=== PATIENT | female | born 1940 | race Caucasian/White ===

== ENCOUNTER 2021-07-15 12:19 | Observation (INO) | payer MEDICARE ==
--- NOTE | 2021-07-15 12:47 | ED ---
General Adult HPI - General Stated complaint: Syncope Time Seen by Provider: 07/15/21 12:20 Source: patient, RN notes reviewed, old records reviewed - History of Present Illness Initial comments: This is an 81-year-old female who presents to the emergency department stating she has a past medical history of Parkinson's disease and has a deep brain stimulator in place. Patient states she was going down to see her neurologist a nd that she was driving she became lightheaded thought she would pass out so she pulled over at a friend's house and laid down and called EMS. Patient states the symptoms lasted for about half an hour and it was definitely the sensation that she was going to pass out and did not dizziness or vertiginous in nature. Patient states she has a very mild headache. Patient denies numbness weakness. Patient states the lightheadedness is pass at this time. Patient states at no time did she have any chest pain or difficulty breathing or felt any palpitations. Patient states she has no history recently of fever chills or cough. Patient states she's had both vaccinations for COVID and the booster. - Related Data Home Medications Medication Instructions Recorded Confirmed Aspirin EC [Ecotrin Low Dose] 81 mg PO HS 07/15/21 07/15/21 Atorvastatin [Lipitor] 80 mg PO DAILY 07/15/21 07/15/21 Carbidopa-Levodopa 25-100 mg 1 tab PO 5XD 07/15/21 07/15/21 [Sinemet 25-100] Cholecalciferol [Vitamin D3 (25 25 mcg PO DAILY 07/15/21 07/15/21 Mcg = 1000 Iu)] Glucosam/Chond/Hyalu/Cf Borate 1 tab PO DAILY 07/15/21 07/15/21 [Move Free [employer] Tablet] Melatonin 2 mg PO HS PRN 07/15/21 07/15/21 Omeprazole 20 mg PO BID 07/15/21 07/15/21 hydroCHLOROthiazide [Hydrodiuril] 12.5 mg PO DAILY 07/15/21 07/15/21 Allergies Allergy/AdvReac Type Severity Reaction Status Date / Time No Known Allergies Allergy Verified 07/15/21 14:18 Review of Systems ROS Statement: Those systems with pertinent positive or pertinent negative responses have been documented in the HPI. ROS Other: All systems not noted in ROS Statement are negative. General Exam - General Exam Comments Initial Comments: GENERAL: Patient is well-developed and well-nourished. Patient is nontoxic and well-hyd rated and is in no acute distress. ENT: Neck is soft and supple. No significant lymphadenopathy is noted. Oropharynx is clear. Moist mucous membranes. Neck has full range of motion without elicit ing any pain. EYES: The sclera were anicteric and conjunctiva were pink and moist. Extraocular m ovements were intact and pupils were equal round and reactive to light. Eyelids were unremarkable. PULMONARY: Mild Unlabored respirations. Good breath sounds bilaterally. No audible rales rhonchi or wheezing was noted. CARDIOVASCULAR: There is a regular rate and rhythm without any murmurs gallops or rubs. ABDOMEN: Soft and nontender with normal bowel sounds. SKIN: Skin is clear with no lesions or rashes and otherwise unremarkable. NEUROLOGIC: Patient is alert and oriented x3. Cranial nerves II through XII are grossly intact. Motor and sensory are also intact. Normal speech, volume and content. Symmetrical smile. MUSCULOSKELETAL: Normal extremities with adequate strength and full range of motion. LYMPHATICS: No significant lymphadenopathy is noted PSYCHIATRIC: Normal psychiatric evaluation. Course Vital Signs 07/15/21 12:57 Temperature 97.8 F Pulse Rate 77 Respiratory 20 Rate Blood Pressure 139/86 O2 Sat by Pulse 96 Oximetry Medical Decision Making - Medical Decision Making EKG shows normal sinus rhythm at 63 bpm LA interval is 120 QRS is 86 Q-T intervals 434 QTC is 444. Patient's EKG shows no ST segment elevation or depression. Chest x-ray shows no acute abnormality. Patient was at her baseline when I reevaluated her but because of her near syncopal episode and the fact that her said she was unable to respond to him for about 10 minutes even though she could hear I determined it was in the best interest of the patient to keep her in the hospital. - Lab Data Result diagrams: 07/15/21 13:12 07/15/21 13:12 Lab Results 07/15/21 07/15/21 07/15/21 Range/Units 13:12 13:12 13:12 WBC 6.0 (3.8-10.6) k/uL RBC 4.62 (3.80-5.40) m/uL Hgb 15.4 (11.4-16.0) gm/dL Hct 44.9 (34.0-46.0) % MCV 97.2 (80.0-100.0) fL MCH 33.4 (25.0-35.0) pg MCHC 34.3 (31.0-37.0) g/dL RDW 12.3 (11.5-15.5) % Plt Count 221 (150-450) k/uL MPV 7.6 Neutrophils % 79 % Lymphocytes % 14 % Monocytes % 5 % Eosinophils % 1 % Basophils % 1 % Neutrophils # 4.7 (1.3-7.7) k/uL Lymphocytes # 0.8 L (1.0-4.8) k/uL Monocytes # 0.3 (0-1.0) k/uL Eosinophils # 0.1 (0-0.7) k/uL Basophils # 0.0 (0-0.2) k/uL PT 13.3 H (9.0-12.0) sec INR 1.3 H (<1.2) APTT 26.1 (22.0-30.0) sec Sodium 135 L (137-145) mmol/L Potassium 4.2 (3.5-5.1) mmol/L Chloride 101 (98-107) mmol/L Carbon Dioxide 26 (22-30) mmol/L Anion Gap 8 mmol/L BUN 21 H (7-17) mg/dL Creatinine 0.60 (0.52-1.04) mg/dL Est GFR (CKD-EPI)AfAm >90 (>60 ml/min/1.73 sqM) Est GFR (CKD-EPI)NonAf 87 (>60 ml/min/1.73 sqM) Glucose 101 H (74-99) mg/dL Calcium 9.6 (8.4-10.2) mg/dL Magnesium 2.2 (1.6-2.3) mg/dL Total Bilirubin 1.1 (0.2-1.3) mg/dL AST 39 H (14-36) U/L ALT 8 (4-34) U/L Alkaline Phosphatase 63 (38-126) U/L Troponin I (0.000-0.034) ng/mL Total Protein 6.7 (6.3-8.2) g/dL Albumin 4.2 (3.5-5.0) g/dL 12/01/21 Range/Units 13:12 WBC (3.8-10.6) k/uL RBC (3.80-5.40) m/uL Hgb (11.4-16.0) gm/dL Hct (34.0-46.0) % MCV (80.0-100.0) fL MCH (25.0-35.0) pg MCHC (31.0-37.0) g/dL RDW (11.5-15.5) % Plt Count (150-450) k/uL MPV Neutrophils % % Lymphocytes % % Monocytes % % Eosinophils % % Basophils % % Neutrophils # (1.3-7.7) k/uL Lymphocytes # (1.0-4.8) k/uL Monocytes # (0-1.0) k/uL Eosinophils # (0-0.7) k/uL Basophils # (0-0.2) k/uL PT (9.0-12.0) sec INR (<1.2) APTT (22.0-30.0) sec Sodium (137-145) mmol/L Potassium (3.5-5.1) mmol/L Chloride (98-107) mmol/L Carbon Dioxide (22-30) mmol/L Anion Gap mmol/L BUN (7-17) mg/dL Creatinine (0.52-1.04) mg/dL Est GFR (CKD-EPI)AfAm (>60 ml/min/1.73 sqM) Est GFR (CKD-EPI)NonAf (>60 ml/min/1.73 sqM) Glucose (74-99) mg/dL Calcium (8.4-10.2) mg/dL Magnesium (1.6-2.3) mg/dL Total Bilirubin (0.2-1.3) mg/dL AST (14-36) U/L ALT (4-34) U/L Alkaline Phosphatase (38-126) U/L Troponin I <0.012 (0.000-0.034) ng/mL Total Protein (6.3-8.2) g/dL Albumin (3.5-5.0) g/dL Disposition Clinical Impression: Near syncope Disposition: ADMITTED IP TO THIS HOSP Referrals: Rick Hurst MD [Primary Care Provider] - 1-2 days Time of Disposition: 14:32
[2021-07-15 13:29] LABS: Basophils % (A) 1 %; Eosinophils # (A) 0.1 k/uL (0-0.7); Eosinophils % (A) 1 %; HCT 44.9 % (34.0-46.0); HGB 15.4 gm/dL (11.4-16.0); Lymphocytes # (A) 0.8 k/uL (1.0-4.8); Lymphocytes % (A) 14 %; MCH 33.4 pg (25.0-35.0); MCHC 34.3 g/dL (31.0-37.0); MCV 97.2 fL (80.0-100.0); Mean Platelet Volume 7.6; Monocytes # (A) 0.3 k/uL (0-1.0); Monocytes % (A) 5 %; Neutrophils # (A) 4.7 k/uL (1.3-7.7); Neutrophils % (A) 79 %; Platelet Count 221 k/uL (150-450); RBC 4.62 m/uL (3.80-5.40); RDW 12.3 % (11.5-15.5)
--- NOTE | 2021-07-15 13:39 | XR ---
EXAMINATION TYPE: XR chest 2V DATE OF EXAM: 07/15/2021 COMPARISON: NONE HISTORY: Shortness of breath TECHNIQUE: Frontal and lateral views of the chest are obtained. FINDINGS: Scattered senescent parenchymal changes noted. Hyperinflation compatible with COPD. No evidence for infiltrate. No evidence for atelectasis. Heart size is stable. Mediastinal structures are stable and grossly unremarkable. No evidence for hilar prominence. Degenerative changes dorsal spine. IMPRESSION: 1. No evidence for acute pulmonary disease.
[2021-07-15 13:40] LABS: INR 1.3 (<1.2); Partial Thromboplastin Time 26.1 sec (22.0-30.0); Prothrombin Time 13.3 sec (9.0-12.0)
[2021-07-15 13:44] LABS: ALT 8 U/L (4-34); AST 39 U/L (14-36); African American GFR (CKD) >90 (>60 ml/min/1.73 sqM); Albumin 4.2 g/dL (3.5-5.0); Alkaline Phosphatase 63 U/L (38-126); Anion Gap 8 mmol/L; Blood Urea Nitrogen 21 mg/dL (7-17); Calcium 9.6 mg/dL (8.4-10.2); Carbon Dioxide 26 mmol/L (22-30); Chloride 101 mmol/L (98-107); Glucose 101 mg/dL (74-99); Magnesium 2.2 mg/dL (1.6-2.3); Non-African American GFR(CKD) 87 (>60 ml/min/1.73 sqM); Potassium 4.2 mmol/L (3.5-5.1); Sodium 135 mmol/L (137-145); Total Bilirubin 1.1 mg/dL (0.2-1.3); Total Protein 6.7 g/dL (6.3-8.2)
[2021-07-15] MEDS ORDERED: SODIUM CHLORIDE 0.9% 1,000 ML IV ONE (14:32)
[2021-07-15] MEDS ORDERED: MELATONIN 1 MG TAB PO PRN (16:11)
[2021-07-15] MEDS: amLODIPine 5 MG TAB PO SCH (18:16)
[2021-07-15] MEDS: CARBIDOPA-LEVODOPA 25-100 MG 1 EACH TAB PO SCH (20:44)
[2021-07-15] MEDS ORDERED: ASPIRIN 81 MG PO SCH (21:00)
[2021-07-16] MEDS: CARBIDOPA-LEVODOPA 25-100 MG 1 EACH TAB PO SCH ×3 (00:44→10:48)
[2021-07-16] MEDS ORDERED: PANTOPRAZOLE 40 MG TABLET PO SCH (07:30)
[2021-07-16] MEDS: amLODIPine 5 MG TAB PO SCH (08:26)
[2021-07-16] MEDS ORDERED: ATORVASTATIN 80 MG TAB PO SCH (09:00)
[2021-07-16] MEDS ORDERED: CHOLECALCIFEROL 25 MCG (1000 IU) TABLET PO SCH (09:00)
--- NOTE | 2021-07-16 13:26 | P.HPIM ---
History of Present Illness Patient is a pleasant 81-year-old female came in with complaints of lightheadedness and a sensation of hot flashes and about to pass out. Didn't actually lose consciousness. Patient was admitted for monitoring. Patient had EKG did not show any acute ST-T wave changes no significant abnormality is on the EKG getting Her syncope patient is sinus rhythm with patient does have history of Parkinson's has a deep brain stimulator patient believes her mom function is this stem later may have caused her symptoms. Patient did not have any significant abnormalities on bus driver/monitor. Patient denied any chest pain. Patient wanted to go home. I will order an outpatient echocardiogram and follow with primary care physician as an outpatient patient the blood pressure is bit elevated orthostatics are negative. Lites are within normal limits. REVIEW OF SYSTEMS: CONSTITUTIONAL: No fever, no malaise, no fatigue. HEENT: No recent visual problems or hearing problems. Denied any sore throat. CARDIOVASCULAR: No chest pain, orthopnea, PND, no palpitations, no syncope. PULMONARY: No shortness of breath, no cough, no hemoptysis. GASTROINTESTINAL: No diarrhea, no nausea, no vomiting, no abdominal pain. NEUROLOGICAL: No headaches, no weakness, no numbness. HEMATOLOGICAL: Denies any bleeding or petechiae. GENITOURINARY: Denies any burning micturition, frequency, or urgency. MUSCULOSKELETAL/RHEUMATOLOGICAL: Denies any joint pain, swelling, or any muscle pain. ENDOCRINE: Denies any polyuria or polydipsia. The rest of the 14-point review of systems is negative. PHYSICAL EXAMINATION: GENERAL: The patient is alert and oriented x3, not in any acute distress. Well developed, well nourished. HEENT: Pupils are round and equally reacting to light. EOMI. No scleral icterus. No conjunctival pallor. Normocephalic, atraumatic. No pharyngeal erythema. No thyromegaly. CARDIOVASCULAR: S1 and S2 present. No murmurs, rubs, or gallops. PULMONARY: Chest is clear to auscultation, no wheezing or crackles. ABDOMEN: Soft, nontender, nondistended, normoactive bowel sounds. No palpable organomegaly. MUSCULOSKELETAL: No joint swelling or deformity. EXTREMITIES: No cyanosis, clubbing, or pedal edema. NEUROLOGICAL: Gross neurological examination did not reveal any focal deficits. SKIN: No rashes. Assessment and plan -Dizziness and near syncope: Etiology is not clear but patient was monitored overnight echo will be obtain as an outpatient patient doesn't have any significant murmurs. Patient wanted to go home because of which I'll order an outpatient echo and will be discharged today -History of Parkinson's for which patient is on carbidopa and levodopa along with the brain stem later as mentioned above patient will follow-up with the neurologist outpatient and-hypertension patient will be resumed on home medications -Gastro esophageal reflux disease Past Medical History Past Medical History: Hypertension Additional Past Medical History / Comment(s): parkinsons History of Any Multi-Drug Resistant Organisms: None Reported Past Surgical History: Back Surgery, Hysterectomy Additional Past Surgical History / Comment(s): deep brain stimulator for parkinsons Past Psychological History: No Psychological Hx Reported Smoking Status: Never smoker Past Alcohol Use History: None Reported Past Drug Use History: None Reported Medications and Allergies Home Medications Medication Instructions Recorded Confirmed Type Aspirin EC [Ecotrin Low Dose] 81 mg PO HS 07/15/21 07/15/21 History Atorvastatin [Lipitor] 80 mg PO DAILY 07/15/21 07/15/21 History Carbidopa-Levodopa 25-100 mg 1 tab PO 5XD 07/15/21 07/15/21 History [Sinemet 25-100] Cholecalciferol [Vitamin D3 (25 25 mcg PO DAILY 07/15/21 07/15/21 History Mcg = 1000 Iu)] Glucosam/Chond/Hyalu/Cf Borate 1 tab PO DAILY 07/15/21 07/15/21 History [Move Free [employer] Health Tablet] Melatonin 2 mg PO HS PRN 07/15/21 07/15/21 History Omeprazole 20 mg PO BID 07/15/21 07/15/21 History hydroCHLOROthiazide [Hydrodiuril] 12.5 mg PO DAILY 07/15/21 07/15/21 History Allergies Allergy/AdvReac Type Severity Reaction Status Date / Time No Known Allergies Allergy Verified 07/15/21 14:18 Physical Exam Vitals: Vital Signs Temp Pulse Pulse Pulse Pulse Pulse Resp 07/16/21 08:00 18 07/16/21 07:00 98 F 80 18 07/16/21 01:11 97.9 F 83 16 07/15/21 19:37 98.1 F 89 16 07/15/21 17:38 88 99 85 07/15/21 17:37 97.7 F 85 20 07/15/21 16:14 98.1 F 83 20 07/15/21 14:59 80 20 BP BP BP BP BP Pulse Ox 07/16/21 08:00 07/16/21 07:00 147/77 94 L 07/16/21 01:11 153/81 97 07/15/21 19:37 159/90 96 07/15/21 17:38 206/120 189/105 175/112 07/15/21 17:37 189/105 97 07/15/21 16:14 165/96 96 07/15/21 14:59 152/93 97 Intake and Output 07/15/21 07/16/21 07/16/21 22:59 06:59 14:59 Intake Total 250 500 Balance 250 500 Intake: Oral 250 500 Other: Voiding Method Toilet Toilet # Voids 2 3 Weight 49.895 kg Results CBC & Chem 7: 07/15/21 13:12 07/15/21 13:12 Labs: Abnormal Lab Results - Last 24 Hours (Table) 07/15/21 07/15/21 07/15/21 Range/Units 13:12 13:12 13:12 Lymphocytes # 0.8 L (1.0-4.8) k/uL PT 13.3 H (9.0-12.0) sec INR 1.3 H (<1.2) Sodium 135 L (137-145) mmol/L BUN 21 H (7-17) mg/dL Glucose 101 H (74-99) mg/dL AST 39 H (14-36) U/L
--- NOTE | 2021-07-16 13:26 | P.DS ---
Providers Date of admission: 07/15/21 15:44 Attending physician: Guido Hawkins Primary care physician: Rick Hurst [facility] Course: Refer to my history of present illness for further details Plan - Discharge Summary Discharge Rx Participant: Yes New Discharge Prescriptions: No Action Melatonin 2 mg PO HS PRN PRN Reason: Insomnia Atorvastatin [Lipitor] 80 mg PO DAILY hydroCHLOROthiazide [Hydrodiuril] 12.5 mg PO DAILY Glucosam/Chond/Hyalu/Cf Borate [Move Free [employer] Tablet] 1 tab PO DAILY Cholecalciferol [Vitamin D3 (25 Mcg = 1000 Iu)] 25 mcg PO DAILY Carbidopa-Levodopa 25-100 mg [Sinemet 25-100] 1 tab PO 5XD Aspirin EC [Ecotrin Low Dose] 81 mg PO HS Omeprazole 20 mg PO BID Discharge Medication List Aspirin EC [Ecotrin Low Dose] 81 mg PO HS 07/15/21 [History] Atorvastatin [Lipitor] 80 mg PO DAILY 07/15/21 [History] Carbidopa-Levodopa 25-100 mg [Sinemet 25-100] 1 tab PO 5XD 07/15/21 [History] Cholecalciferol [Vitamin D3 (25 Mcg = 1000 Iu)] 25 mcg PO DAILY 07/15/21 [History] Glucosam/Chond/Hyalu/Cf Borate [Move Free [employer] Health Tablet] 1 tab PO DAILY 07/15/21 [History] Melatonin 2 mg PO HS PRN 07/15/21 [History] Omeprazole 20 mg PO BID 07/15/21 [History] hydroCHLOROthiazide [Hydrodiuril] 12.5 mg PO DAILY 07/15/21 [History] Follow up Appointment(s)/Referral(s): Rick Hurst MD [Primary Care Provider] - 1-2 days
[2021-07-16 14:37] VITALS: BP 111/76; PULSE 91; RESP 20; TEMP 98.5
== END 2021-07-16 14:35 | disposition left against medical advice (07) ==
LOC: EC 12:19 → 6NMEDSUR 15:44
PROVIDERS: ADMIT Internal Medicine; ATTEND Internal Medicine
DX: R55 Syncope and collapse (principal); G20 Parkinson's disease; F02.80 Dementia in other diseases classified elsewhere, unspecified severity, without behavioral disturbance, psychotic disturbance, mood disturbance, and anxiety; I10 Essential (primary) hypertension; K21.9 Gastro-esophageal reflux disease without esophagitis; Z20.822 Contact with and (suspected) exposure to COVID-19; Z79.899 Other long term (current) drug therapy; Z90.710 Acquired absence of both cervix and uterus; Z98.890 Other specified postprocedural states; Z96.82 Presence of neurostimulator
CPT/HCPCS: 99285; 36415; 93005; 80053; 83735; 84484; 85025; 85610; 85730; 87635; 71046; G0378 ×2

== ENCOUNTER 2022-12-02 14:10 | Observation (INO) | payer MEDICARE ==
[2022-12-02] MEDS ORDERED: SODIUM CHLORIDE 0.9% 500 ML 500 ML IV STA (14:52)
[2022-12-02 15:18] LABS: Basophils % (A) 0 %; Eosinophils # (A) 0.1 k/uL (0-0.7); Eosinophils % (A) 2 %; HCT 40.7 % (34.0-46.0); HGB 13.9 gm/dL (11.4-16.0); Lymphocytes # (A) 0.9 k/uL (1.0-4.8); Lymphocytes % (A) 14 %; MCH 34.1 pg (25.0-35.0); MCV 100.3 fL (80.0-100.0); Mean Platelet Volume 7.2; Monocytes # (A) 0.4 k/uL (0-1.0); Monocytes % (A) 6 %; Neutrophils # (A) 4.8 k/uL (1.3-7.7); Neutrophils % (A) 76 %; Platelet Count 243 k/uL (150-450); RBC 4.06 m/uL (3.80-5.40); RDW 12.8 % (11.5-15.5); WBC 6.3 k/uL (3.8-10.6)
--- NOTE | 2022-12-02 15:41 | XR ---
EXAMINATION TYPE: XR chest 2V DATE OF EXAM: 12/02/2022 COMPARISON: 07/15/2021 HISTORY: Altered mental status TECHNIQUE: Frontal and lateral views of the chest are obtained. FINDINGS: There are bilateral nerve stimulator device is present. The heart size is normal. The cardiomediastin al silhouette and pulmonary vasculature are within normal limits. There are a few linear opacities se en at the left lateral costo phrenic angle, which is most compatible with minimal subsegmental atelec tasis. There is no focal consolidation, significant pleural effusion, or pneumothorax. There are mult ilevel degenerative changes of the thoracic spine. IMPRESSION: No acute cardiopulmonary process.
[2022-12-02 15:43] LABS: Partial Thromboplastin Time 22.8 sec (22.0-30.0); Prothrombin Time 10.4 sec (9.0-12.0)
--- NOTE | 2022-12-02 15:49 | CT ---
EXAMINATION TYPE: CT brain wo con CT DLP: 1294.6 mGycm, Automated exposure control for dose reduction was used. DATE OF EXAM: 12/02/2022 3:35 PM COMPARISON: None. CLINICAL INDICATION:Female, 82 years old with history of Neuro deficit, acute, stroke suspected, Neur o deficit, acute, stroke suspected TECHNIQUE: Brain: Axial CT images of the brain were obtained with coronal and sagittal reformats created and rev iewed. Contrast used: None. Oral contrast used: None. FINDINGS: Brain: Extra-axial spaces: No abnormal extra-axial fluid collections. Ventricular system: The ventricles are nondilated. Cerebral parenchyma: Stimulator devices terminate within the thalami bilaterally. No acute intraparen chymal hemorrhage or mass effect. The pereira-white junction is well differentiated. Cerebellum: Unremarkable. Mass effect: No evidence of midline shift. Intracranial vasculature: unremarkable Soft tissues: Normal. Calvarium/osseous structures: No depressed skull fracture. Paranasal sinuses and mastoid air cells: Mild scattered paranasal sinus disease. Visualized orbits: Bilateral aphakia. IMPRESSION: 1. No acute intracranial process. 2. Bilateral stimulator leads terminating in the thalami.
[2022-12-02 15:53] LABS: Albumin 4.1 g/dL (3.5-5.0); Calcium 9.2 mg/dL (8.4-10.2); Potassium 4.4 mmol/L (3.5-5.1); Total Bilirubin 0.7 mg/dL (0.2-1.3); Total Protein 6.7 g/dL (6.3-8.2)
[2022-12-02] MEDS ORDERED: ASPIRIN 325 MG TAB PO STA (16:09)
--- NOTE | 2022-12-02 16:10 | ED ---
General Adult HPI - General Chief complaint: Syncope Stated complaint: Stroke Symptoms Time Seen by Provider: 12/02/22 14:20 Source: patient, RN notes reviewed, old records reviewed Mode of arrival: EMS Limitations: no limitations - History of Present Illness Initial comments: This is an 82-year-old female presents emergency department stating that she was sitting on a barstool at home and passed out according to bystanders she was out for 2-3 minutes. When she became alert she had facial droop and right-sided paralysis of the arm. It lasted about 5 minutes and all symptoms resolved. Patient currently has no symptoms whatsoever. Patient states she has Parkinson disease and she has to stimulators and there will wonderfully. Patient denies any headache patient denies any emesis weakness currently. Patient is chest pain palpitations difficulty breathing shortness of breath. Patient denies any recent fever chills or cough per patient has any abdominal pain patient denies nausea vomiting diarrhea - Related Data Home Medications Medication Instructions Recorded Confirmed Aspirin EC [Ecotrin Low Dose] 81 mg PO HS 07/15/21 07/15/21 Atorvastatin [Lipitor] 80 mg PO DAILY 07/15/21 07/15/21 Carbidopa-Levodopa 25-100 mg 1 tab PO 5XD 07/15/21 07/15/21 [Sinemet 25-100] Cholecalciferol [Vitamin D3 (25 25 mcg PO DAILY 07/15/21 07/15/21 Mcg = 1000 Iu)] Glucosam/Chond/Hyalu/Cf Borate 1 tab PO DAILY 07/15/21 07/15/21 [[employer] Tablet] Melatonin 2 mg PO HS PRN 07/15/21 07/15/21 Omeprazole 20 mg PO BID 07/15/21 07/15/21 hydroCHLOROthiazide [Hydrodiuril] 12.5 mg PO DAILY 07/15/21 07/15/21 Allergies Allergy/AdvReac Type Severity Reaction Status Date / Time No Known Allergies Allergy Verified 12/02/22 15:52 Review of Systems ROS Statement: Those systems with pertinent positive or pertinent negative responses have been documented in the HPI. ROS Other: All systems not noted in ROS Statement are negative. Past Medical History Past Medical History: CVA/TIA, Hypertension Additional Past Medical History / Comment(s): parkinsons History of Any Multi-Drug Resistant Organisms: None Reported Past Surgical History: Back Surgery, Hysterectomy Additional Past Surgical History / Comment(s): deep brain stimulator for parkinsons Past Psychological History: No Psychological Hx Reported Smoking Status: Never smoker Past Alcohol Use History: None Reported Past Drug Use History: None Reported General Exam - General Exam Comments Initial Comments: GENERAL: Patient is well-developed and well-nourished. Patient is nontoxic and well- hydrated and is in no acute distress. ENT: Neck is soft and supple. No significant lymphadenopathy is noted. Oropharynx is clear. Moist mucous membranes. Neck has full range of motion without eliciting any pain. EYES: The sclera were anicteric and conjunctiva were pink and moist. Extraocular movements were intact and pupils were equal round and reactive to light. Eyelids were unremarkable. PULMONARY: Unlabored respirations. Good breath sounds bilaterally. No audible rales rhonchi or wheezing was noted. CARDIOVASCULAR: There is a regular rate and rhythm without any murmurs gallops or rubs. ABDOMEN: Soft and nontender with normal bowel sounds. SKIN: Skin is clear with no lesions or rashes and otherwise unremarkable. NEUROLOGIC: Patient is alert and oriented x3. Cranial nerves II through XII are grossly intact. Motor and sensory are also intact. Normal speech, volume and content. Symmetrical smile. Patient's NIH is 0 MUSCULOSKELETAL: Normal extremities with adequate strength and full range of motion. No lower extremity swelling or edema. No calf tenderness. LYMPHATICS: No significant lymphadenopathy is noted PSYCHIATRIC: Normal psychiatric evaluation. Limitations: no limitations Course Vital Signs 12/02/22 12/02/22 14:18 14:20 Temperature 98 F Pulse Rate 82 68 Respiratory 16 16 Rate Blood Pressure 140/85 140/85 O2 Sat by Pulse 100 99 Oximetry Medical Decision Making - Medical Decision Making EKG shows sinus rhythm at 66 bpm GA interval 268 QRSs 102 QT interval 33 QTC is 397. Patient's EKG shows no ST segment elevation or depression. Was pt. sent in by a medical professional or institution (, PA, REVERSE UNIT OPERATOR FISHERMAN, urgent care, hospital, or snf...) When possible be specific @ -No Did you speak to anyone other than the patient for history (EMS, parent, family, police, friend...)? What history was obtained from this source @ -EMS relayed the history from bystanders found the patient was unconscious Did you review nursing and triage notes (agree or disagree)? Why? @ -I reviewed and agree with nursing and triage notes Were old charts reviewed (outside hosp., previous admission, EMS record, old EKG, old radiological studies, urgent care reports/EKG's, snf records)? Report findings @ -Reviewed prior lab work and charts on this patient. Differential Diagnosis (chest pain, altered mental status, abdominal pain women, abdominal pain men, vaginal bleeding, weakness, fever, dyspnea, syncope, headache, dizziness, GI bleed, back pain, seizure, CVA, palpatations, mental health, musculoskeletal)? @ -Differential CVA Ischemic stroke, hemorrhagic stroke, brain tumor, atypical migraine, Wernicke's encephalopathy, seizure, multiple sclerosis, meningitis, encephalitis, hypoglycemia, Guillain-Malhotra, electrolytes disturbance, myasthenia gravis.... This is not meant to be an all-inclusive listDifferential Syncope: Valvular disease, hypertrophic cardiomyopathy, pulmonary embolism, tamponade, tachycardia, bradycardia, OK, hypovolemia, hemorrhage, dissection, anemia, intracranial hemorrhage, seizure, hypoglycemia, carbon monoxide poisoning, this is not meant to be an all-inclusive list. EKG interpreted by me (3pts min.). @ -As above X-rays interpreted by me (1pt min.). @ -Chest x-ray was interpreted by myself is on no acute abnormalities CT interpreted by me (1pt min.). @ -CT of the brain was interpreted by myself as see no acute abnormalities U/S interpreted by me (1pt. min.). @ -None done What testing was considered but not performed or refused? (CT, X-rays, U/S, labs)? Why? @ -None What meds were considered but not given or refused? Why? @ -None Did you discuss the management of the patient with other professionals (professionals i.e. , PA, REVERSE UNIT OPERATOR [employer]ERMAN, lab, RT, psych nurse, licensed clinical social worker, respiratory clinician, teacher, custom protection officer, hospice case manager)? Give summary @ -I spoke with Dr. Montiel he agreed to admit the patient admitted the rosario murdock I consult the neurology Was smoking cessation discussed for >3mins.? @ -No Was critical care preformed (if so, how long)? @ -No Were there social determinants of health that impacted care today? How? (Homelessness, low income, unemployed, alcoholism, drug addiction, transportation, low edu. Level, literacy, decrease access to med. care, prison, rehab)? @ -No Was there de-escalation of care discussed even if they declined (Discuss DNR or withdrawal of care, Hospice)? DNR status @ -No What co-morbidities impacted this encounter? (DM, HTN, Smoking, COPD, CAD, Cancer, CVA, ARF, Chemo, Hep., AIDS, mental health diagnosis, sleep apnea, morbid obesity)? @ -None Was patient admitted / discharged? Hospital course, mention meds given and route, prescriptions, significant lab abnormalities, going to OR and other pertinent info. @ -Patient remained asymptomatic in the emergency department. I spoke with Dr. Montiel he agreed to admit the patient admitted the patient I consult the neurology. Undiagnosed new problem with uncertain prognosis? @ -No Drug Therapy requiring intensive monitoring for toxicity (Heparin, Nitro, Insulin, Cardizem)? @ -No Were any procedures done? @ -No Diagnosis/symptom? @ -TIA Acute, or Chronic, or Acute on Chronic? @ -Acute Uncomplicated (without systemic symptoms) or Complicated (systemic symptoms)? @ -Complicated Side effects of treatment? @ -No Exacerbation, Progression, or Severe Exacerbation? @ -No Poses a threat to life or bodily function? How? (Chest pain, USA, OK, pneumonia, PE, COPD, DKA, ARF, appy, cholecystitis, CVA, Diverticulitis, Homicidal, Suicidal, threat to staff... and all critical care pts) @ -Yes this could lead to a stroke and orbit any or mortality. Diagnosis/symptom? @ -Syncope Acute, or Chronic, or Acute on Chronic? @ -Acute Uncomplicated (without systemic symptoms) or Complicated (systemic symptoms)? @ -default Side effects of treatment? @ -none Exacerbation, Progression, or Severe Exacerbation] @ -no Poses a threat to life or bodily function? @ -Yes this could have been caused by arrhythmia patient will be monitored throughout the stay in the hospital - Lab Data Result diagrams: 12/02/22 15:04 12/02/22 15:04 Lab Results 12/02/22 12/02/22 12/02/22 Range/Units 15:04 15:04 15:04 WBC 6.3 (3.8-10.6) k/uL RBC 4.06 (3.80-5.40) m/uL Hgb 13.9 (11.4-16.0) gm/dL Hct 40.7 (34.0-46.0) % MCV 100.3 H (80.0-100.0) fL MCH 34.1 (25.0-35.0) pg MCHC 34.0 (31.0-37.0) g/dL RDW 12.8 (11.5-15.5) % Plt Count 243 (150-450) k/uL MPV 7.2 Neutrophils % 76 % Lymphocytes % 14 % Monocytes % 6 % Eosinophils % 2 % Basophils % 0 % Neutrophils # 4.8 (1.3-7.7) k/uL Lymphocytes # 0.9 L (1.0-4.8) k/uL Monocytes # 0.4 (0-1.0) k/uL Eosinophils # 0.1 (0-0.7) k/uL Basophils # 0.0 (0-0.2) k/uL PT 10.4 (9.0-12.0) sec INR 1.0 (<1.2) APTT 22.8 (22.0-30.0) sec Sodium 137 (137-145) mmol/L Potassium 4.4 (3.5-5.1) mmol/L Chloride 100 (98-107) mmol/L Carbon Dioxide 32 H (22-30) mmol/L Anion Gap 5 mmol/L BUN 34 H (7-17) mg/dL Creatinine 1.04 (0.52-1.04) mg/dL Est GFR (CKD-EPI)AfAm 58 (>60 ml/min/1.73 sqM) Est GFR (CKD-EPI)NonAf 51 (>60 ml/min/1.73 sqM) Glucose 107 H (74-99) mg/dL Calcium 9.2 (8.4-10.2) mg/dL Total Bilirubin 0.7 (0.2-1.3) mg/dL AST 24 (14-36) U/L ALT 6 (4-34) U/L Alkaline Phosphatase 51 (38-126) U/L Creatine Kinase (30-135) U/L Troponin I (0.000-0.034) ng/mL Total Protein 6.7 (6.3-8.2) g/dL Albumin 4.1 (3.5-5.0) g/dL 12/02/22 12/02/22 Range/Units 15:04 15:04 WBC (3.8-10.6) k/uL RBC (3.80-5.40) m/uL Hgb (11.4-16.0) gm/dL Hct (34.0-46.0) % MCV (80.0-100.0) fL MCH (25.0-35.0) pg MCHC (31.0-37.0) g/dL RDW (11.5-15.5) % Plt Count (150-450) k/uL MPV Neutrophils % % Lymphocytes % % Monocytes % % Eosinophils % % Basophils % % Neutrophils # (1.3-7.7) k/uL Lymphocytes # (1.0-4.8) k/uL Monocytes # (0-1.0) k/uL Eosinophils # (0-0.7) k/uL Basophils # (0-0.2) k/uL PT (9.0-12.0) sec INR (<1.2) APTT (22.0-30.0) sec Sodium (137-145) mmol/L Potassium (3.5-5.1) mmol/L Chloride (98-107) mmol/L Carbon Dioxide (22-30) mmol/L Anion Gap mmol/L BUN (7-17) mg/dL Creatinine (0.52-1.04) mg/dL Est GFR (CKD-EPI)AfAm (>60 ml/min/1.73 sqM) Est GFR (CKD-EPI)NonAf (>60 ml/min/1.73 sqM) Glucose (74-99) mg/dL Calcium (8.4-10.2) mg/dL Total Bilirubin (0.2-1.3) mg/dL AST (14-36) U/L ALT (4-34) U/L Alkaline Phosphatase (38-126) U/L Creatine Kinase 49 (30-135) U/L Troponin I <0.012 (0.000-0.034) ng/mL Total Protein (6.3-8.2) g/dL Albumin (3.5-5.0) g/dL Disposition Clinical Impression: Syncope, TIA (transient ischemic attack) Disposition: ADMITTED IP TO THIS HOSP Referrals: Rick Hurst MD [Primary Care Provider] - 1-2 days Time of Disposition: 16:06
--- NOTE | 2022-12-02 19:22 | US ---
EXAMINATION TYPE: US carotid duplex BILAT DATE OF EXAM: 12/02/2022 COMPARISON: NONE CLINICAL INDICATION: Female, 82 years old with history of TIA vs seizure; Possible TIA TECHNIQUE: Carotid duplex ultrasound examination. Indirect Doppler criteria was utilized. FINDINGS: EXAM MEASUREMENTS: RIGHT: Peak Systolic Velocity (PSV) cm/sec ----- Right CCA: 45.5 ----- Right ICA: 53.7 ----- Right ECA: 61.4 ICA/CCA ratio: 1.2 RIGHT: End Diastole cm/sec ----- Right CCA: 15.5 ----- Right ICA: 19.7 ----- Right ECA: 15.3 LEFT: Peak Systolic Velocity (PSV) cm/sec ----- Left CCA: 56.7 ----- Left ICA: 81.2 ----- Left ECA: 73.5 ICA/CCA ratio: 1.4 LEFT: End Diastole cm/sec ----- Left CCA: 17.1 ----- Left ICA: 32.9 ----- Left ECA: 15.3 VERTEBRALS (direction of flow): Right Vertebral: Antegrade Left Vertebral: Antegrade Rhythm: Normal SQL ANALYST NOTES: Connor scale images show mild to moderate eccentric hyperechoic plaque bilateral carotid bulb level IMPRESSION: No hemodynamically significant stenosis in either internal carotid artery. Criteria for Assigning % of Stenosis / Diameter reduction (Estimation based on the indirect measurements of the internal carotid artery velocities (ICA PSV). 1. Normal (no stenosis)=ICA PSV < 125 cm/s: ratio < 2.0: ICA EDV<40 cm/s. 2. Less than 50% stenosis=ICA PSV < 125 cm/s: ratio < 2.0: ICA EDV<40 cm/s. 3. 50 to 69% stenosis=ICA PSV of 125 to 230 cm/s: ration 2.0 ? 4.0: ICA EDV 40-100 cm/s. 4. Greater than 70% stenosis to near occlusion= ICA PSV > 230 cm/s: ratio > 4.0: ICA EDV > 100 cm/s. 5. Near occlusion= ICA PSV velocities may be low or undetectable: variable ratio and ICA EDV. 6. Total occlusion=unable to detect flow.
[2022-12-02] MEDS: CARBIDOPA-LEVODOPA 25-100 MG 1 EACH TAB PO SCH ×2 (19:37→23:57)
[2022-12-02] MEDS ORDERED: ACETAMINOPHEN TAB 325 MG TAB PO PRN (22:45)
[2022-12-02] MEDS: MELATONIN 5 MG TABLET PO SCH (23:57)
--- NOTE | 2022-12-03 06:56 | P.CNNES ---
History of Present Illness Consult date: 12/02/22 Requesting physician: Marco Leigh Reason for Consult: TIA History of Present Illness: Patient is a 82-year-old right-handed female who came to the hospital by ambulance today at 2:10 PM for possible TIA. EMS flow sheet not available in the chart. Patient and her family provided with history. Patient has history of Parkinson's disease, had undergone bilateral DBS placement but apparently the batteries of DBS have and she is in the process of getting replacement for it. She has an appointment for battery replacement in 2 weeks, but her Parkinson's disease is getting worse because of DBS not working. Earlier today, patient was sitting on the barstool, eating lunch when she felt everything will became foggy. Patient states that she felt as if something was not right and everything turned bright in her vision, she felt something is about to happen. Apparently at that time her head slumped over on the right side and she would lean to the right. She was almost "froze". Her tried to get her attention she was unresponsive and her eyes were closed. There was no jerking, or any convulsive activity. Patient's noticed that she was limp to the right side. He was by her, and was concerned if she would fall off the barstool, and they tried her to lean forward on the counter, but she was stiff slumped to the right, but did not fall to the ground. He could not get her off the stool. He somehow managed to call 911 and they came over within 3-5 minutes. By the time EMS arrived, she was started to show some response, but slowly she improved, not very quickly. EMS then took over and she was brought to the hospital. At present she is back to baseline. Patient did not bite her tongue, did not lose control of urine with this spell. EMS flow sheet not available in the chart, but patient's states that there was some report of possible "low blood pressure". There was no drooling, facial droop noted. Patient at present states that she does not remember EMS arriving on what happened at the scene, but does remember being taken to the ambulance, the ambulance ride and the arrival to the hospital. Vital signs on arrival blood pressure 140/85, pulse rate 82 temperature 98.0. Blood test shows normal CBC with elevated MCV 100.3, PTT PTT normal, electrolytes normal, BUN 34 creatinine 1.04. Hepatic panel normal, troponin negative. CK normal 49 chest x-ray showed no acute process EKG shows sinus rhythm with low voltage QRS. CT head showed no acute intracranial process. Bilateral stimulator lead stimulating in the thalami. I personally reviewed CT head, agree with the findings. No acute process. Patient has history of Parkinson's disease diagnosed 10-12 years ago, had undergone bilateral DBS placement about 6 years ago. Patient follows up with Dr Alcira Peterson in [facility]. Apparently patient's DBS battery has and is in the process of getting replacement of the batteries. She has hypertension, no diabetes. Never smoked tobacco, does not drink alcohol. No previous history of strokes or TIA. No history of seizures. No family history of epilepsy. Review of Systems Constitutional: Denies chills, Denies fever Eyes: bilateral blurred vision (At the onset of symptoms), denies diplopia, denies loss of vision Ears: deny: ear discharge, earache Ears, nose, mouth and throat: Denies headache, Denies sore throat Cardiovascular: Denies chest pain, Denies shortness of breath Respiratory: Denies cough, Denies excessive sputum Gastrointestinal: Denies abdominal pain, Denies diarrhea, Denies nausea, Denies vomiting Genitourinary: Reports urinary frequency, Denies dysuria, Denies flank pain Musculoskeletal: Reports low back pain, Denies frequent falls, Denies myalgias Integumentary: Denies pruritus, Denies rash Neurological: Reports as per HPI Psychiatric: Denies anxiety, Denies depression Endocrine: Denies polyphagia, Denies weight change Past Medical History Past Medical History: CVA/TIA, Hypertension Additional Past Medical History / Comment(s): parkinsons History of Any Multi-Drug Resistant Organisms: None Reported Past Surgical History: Back Surgery, Hysterectomy Additional Past Surgical History / Comment(s): deep brain stimulator for vito sons Past Psychological History: No Psychological Hx Reported Smoking Status: Never smoker Past Alcohol Use History: None Reported Past Drug Use History: None Reported - Past Family History Father Additional Family Medical History / Comment(s): at 51 years of multiple myloma Mother Additional Family Medical History / Comment(s): at age 92. Medications and Allergies Home Medications Medication Instructions Recorded Confirmed Type Aspirin EC [Ecotrin Low Dose] 81 mg PO HS 07/15/21 12/02/22 History Carbidopa-Levodopa 25-100 mg 1 tab PO QID 07/15/21 12/02/22 History [Sinemet 25-100] Acetaminophen Tab [Tylenol] 650 mg PO Q4H PRN 12/02/22 12/02/22 History Lisinopril-Hctz 20-12.5 mg 1 tab PO DAILY 12/02/22 12/02/22 History [Zestoretic 20-12.5] Allergies Allergy/AdvReac Type Severity Reaction Status Date / Time No Known Allergies Allergy Verified 12/02/22 16:34 Physical Examination - Vital Signs Vital Signs: Vital Signs Temp Pulse Resp BP Pulse Ox 12/02/22 17:00 60 16 125/60 98 12/02/22 16:20 86 16 130/60 98 12/02/22 16:16 98 F 86 16 130/60 98 12/02/22 14:20 68 16 140/85 99 12/02/22 14:18 98 F 82 16 140/85 100 Intake and Output 12/02/22 12/02/22 12/02/22 06:59 14:59 22:59 Other: Weight 49.895 kg Patient is an elderly female, in no acute distress. Patient is very pleasant. Patient is alert awake, fairly well oriented. Patient states is the month of November and the year is . She knows it is [facility]. Speech and language functions are normal. Patient can name and repeat very well. No a phasia or dysarthria. Attention, concentration and fund of knowledge is adequate. On cranial nerve examination, pupils are equal, round and reacting to light, visual hampton are full on confrontation, with no neglect on double simultaneous stimulation. Extraocular muscles are intact with no nystagmus. Face is symmetric, tongue protrudes to the midline. Palatal elevation and sensation normal, hearing and shoulder shrug normal, facial sensation normal. On muscle strength testing, there is no pronator drift and the strength is normal in arms and legs distally and proximally, except hip flexion which is weak 4-bilaterally. Deep tendon reflexes are (right/left) biceps 3/2+, brachioradialis 3/2+, knees 1/1, ankles 1/1, plantar is flat on the right, down on the left. Sensory to touch is equal with no neglect on double simultaneous stimulation. Cerebellar function showed no ataxia for [id number] testing. No dysdiadochokinesia. No ataxia for [id number] testing on either side. Tone is very mildly increased and bulk of muscles normal. Patient is slightly bradykinetic. Gait deferred.. On general examination, there is no carotid bruit or murmur, S1-S2 audible. Chest is clear on consultation. Abdomen is soft nontender. No organomegaly, bowel sounds present. Peripheral pulses are present. No edema. Results - Laboratory Findings CBC and BMP: 12/02/22 15:04 12/02/22 15:04 Abnormal Lab Findings: Abnormal Labs 12/02/22 12/02/22 15:04 15:04 MCV 100.3 H Lymphocytes # 0.9 L Carbon Dioxide 32 H BUN 34 H Glucose 107 H Assessment and Plan Assessment: * Episode of unresponsiveness with slump over to the right side, unclear etiology. Differential diagnosis includes possible TIA versus partial seizure versus vasovagal syncope BS arrhythmia. * Parkinson's disease, status post bilateral DBS (with recently DBS batteries, in the process of getting batteries replaced) * Hypertension Plan: * Patient had a possible TIA, need further workup. * Patient cannot have MRI because of presence of bilateral DBS. * We will check 2-D echo with bubble study to rule out PFO * Carotid Doppler, revealed no hemodynamically significant stenosis in either ICA. Antegrade flow in both vertebral arteries. * Fasting a.m. lipid panel * Hemoglobin A1c * Patient has macrocytosis, therefore we will check B12, folate. * Close neuro checks * EEG rule out epileptiform activity. * Continue aspirin. Does increased to 325 mg daily for now. * Continue Sinemet. Patient was receiving Sinemet 25/100, 1 tablet 4 times a day. As the DBS is not working due to batteries, her Parkinson's is getting worse. Family requested to increase the dose of Sinemet to 1.5 tablet 4 times a day. * Telemetry monitoring rule out any arrhythmia * DVT prophylaxis: Heparin 5000 units subcu every 8 hours * Neurology will continue ot follow. Thank you for the consult.
[2022-12-03 08:39] LABS: Basophils # (A) 0.04 X 10*3/uL (0.00-0.10); Basophils % (A) 0.7 %; Eosinophils # (A) 0.11 X 10*3/uL (0.04-0.35); Eosinophils % (A) 2.1 %; HCT 37.8 % (37.2-46.3); HGB 12.7 g/dL (12.0-15.0); Immature Grans, Automated 0 %; Lymphocytes # (A) 1.63 X 10*3/uL (0.90-5.00); Lymphocytes % (A) 30.5 %; MCH 34.3 pg (27.0-32.0); MCHC 33.6 g/dL (32.0-37.0); MCV 102.2 fL (80.0-97.0); Mean Platelet Volume 9.4 fL (9.5-12.2); Monocytes # (A) 0.52 X 10*3/uL (0.20-1.00); Monocytes % (A) 9.7 %; NRBC Per 100 WBC 0 /100 WBCS (0.0-0.0); Neutrophils # (A) 3.04 X 10*3/uL (1.80-7.70); Platelet Count 200 X 10*3/uL (140-440); RDW 13.1 % (11.5-14.5); WBC 5.34 X 10*3/uL (4.50-10.00)
[2022-12-03 08:56] LABS: ALT 5 U/L (8-44); AST 19 U/L (13-35); African American GFR (CKD) 94.2 (60.0-200.0); Albumin 3.9 g/dL (3.8-4.9); Albumin/Globulin Ratio 2.17 (1.60-3.17); Alkaline Phosphatase 46 U/L (41-126); BUN/Creat Ratio 44.86 Ratio (12.00-20.00); Blood Urea Nitrogen 31.4 mg/dL (9.0-27.0); Calcium 9.2 mg/dL (8.7-10.3); Carbon Dioxide 28.4 mmol/L (20.0-27.5); Chloride 105 mmol/L (96-109); Globulin 1.8 g/dL (1.6-3.3); Glucose 86 mg/dL (70-110); Non-African American GFR(CKD) 81.3 (60.0-200.0); Potassium 3.9 mmol/L (3.5-5.5); Sodium 142 mmol/L (135-145); Total Protein 5.7 g/dL (6.2-8.2)
[2022-12-03 08:57] LABS: Chol/HDL Ratio 2.74 Ratio; LDL Cholesterol,Calculated 134.8 mg/dL (0.0-131.0)
[2022-12-03] MEDS ORDERED: CARBIDOPA-LEVODOPA 25-100 MG 1 EACH TAB PO SCH (09:00)
[2022-12-03] MEDS: ASPIRIN 325 MG TAB PO SCH (09:05)
[2022-12-03] MEDS: LISINOPRIL-HCTZ 20-12.5 MG 1 EACH TAB PO SCH (09:05)
[2022-12-03] MEDS: CARBIDOPA-LEVODOPA 25-100 MG 1 EACH TAB PO SCH ×4 (09:05→21:21)
--- NOTE | 2022-12-03 10:14 | P.CRDCN ---
History of Present Illness Consult date: 12/03/22 Reason for Consult (text): CVA History of present illness: History of present illness: This is an 82-year-old with past medical history significant for Parkinson's disease with brain stimulator, hypertension. She has no previous cardiac histo ry, does not follow with a assembler type bar and segment. She has recently moved to the [facility], [place] and established with Dr. Munoz. We have been asked to see the patient for CVA. Patient gives history that she was sitting at the bar with her at home eating and all of a sudden everything went fuzzy and she leaned to the side. This lasted for about 2-3 minutes. She remembers sitting down at the counter right up to the time of this episode. She states she has had dizzy spells but this is not similar to her normal dizzy spell for which the last one occurred a couple weeks ago. Patient was noted to have a facial droop and right-sided paralysis of the arm for 5 minutes following this episode. The weakness and facial droop have completely resolved and not recurred. Regarding her brain stimulator, one battery is at end-of-life and the second one is at 25%. She is to have batteries replaced in about 2 weeks. Patient's son Maximilian Shepherd was contacted and updated. He was concerned that she may have had a "freeze episode" due to the stimulator not functioning but due to the fact that patient cannot recall what happened, this is less likely. Discussed need to rule out underlying atrial fibrillation as culprit. Son is in agreement and discussed plan to have a Holter monitor for now with event monitor following brain stimulator battery replacements. Patient is also in agreement with this plan. Patient has been seen by neurology and increase aspirin to 325 mg daily, ordered echocardiogram with bubble study to rule out PFO, lab work, EEG. EKG sinus rhythm with stimulator artifact, telemetry sinus rhythm with no sign of atrial fibrillation Chest x-ray: No acute process CAT scan of the brain revealed no acute intracranial process. Bilateral stimulator leads terminating in the thalami. Carotid ultrasound: No hemodynamically significant stenosis on either ICA. Home cardiac medications: Aspirin 81 mg daily, Zestoretic 2012 0.5 mg daily Review Of Systems: At the time of my evaluation: Constitutional: No fever, no chills. No weakness, fatigue or lethargy. EENT: No headache. No dizziness. Lungs: No shortness of breath, cough, no sputum production. No wheezing. Cardiovascular: No chest pain, no lower extremity edema. No palpitations. No paroxysmal nocturnal dyspnea. No orthopnea. No lightheadedness or dizziness. No syncopal episodes. Abdominal: No abdominal pain. No nausea, vomiting. No diarrhea. No constipation. No bloody or tarry stools. Genitourinary: No dysuria.. No urinary retention. Musculoskeletal: No myalgias. No muscle weakness, no frequent falls. No back pain. No neck pain. Integumentary: No wounds. No rash. No unusual bruising. Neurologic: No aphasia. No facial droop. No change in mentation. No head injury. No headache. Physical examination: Gen: This is an 82-year-old female. She is resting on the edge of the bed and appears to be in no acute distressVS: reviewed HEENT: Head is atraumatic, normocephalic. Pupils equal, round. Sclerae is anicteric. NECK: Supple. No JVD. . LUNGS: Clear to auscultation. No wheezes or rhonchi. No intercostal retractions. HEART: Regular rate and rhythm. No murmur. ABDOMEN: Soft No tenderness. EXTREMITIES: No pedal edema. No calf tenderness. NEUROLOGICAL: Patient is awake, alert and oriented x3. No facial droop. No extremity weakness. Assessment: TIA Parkinson's disease with brain stimulator with batteries at end of life Hypertension Plan: Patient's family to supervisor [employer] Holter monitor at cardiology office today Follow-up with Dr. Barrientos in 3 weeks If no abnormality is seen on the Holter monitor, patient will have a loop monitor implanted. Thank you kindly for this consultation. Nurse practitioner note has been reviewed, I agree with documented findings and plan of care. Patient was seen and examined. Past Medical History Past Medical History: CVA/TIA, Hypertension Additional Past Medical History / Comment(s): parkinsons History of Any Multi-Drug Resistant Organisms: None Reported Past Surgical History: Back Surgery, Hysterectomy Additional Past Surgical History / Comment(s): deep brain stimulator for parkinsons Past Anesthesia/Blood Transfusion Reactions: No Reported Reaction Past Psychological History: No Psychological Hx Reported Smoking Status: Never smoker Past Alcohol Use History: None Reported Past Drug Use History: None Reported - Past Family History Father Additional Family Medical History / Comment(s): at 51 years of multiple myloma Mother Additional Family Medical History / Comment(s): at age 92. Medications and Allergies Home Medications Medication Instructions Recorded Confirmed Type Aspirin EC [Ecotrin Low Dose] 81 mg PO HS 07/15/21 12/02/22 History Carbidopa-Levodopa 25-100 mg 1 tab PO QID 07/15/21 12/02/22 History [Sinemet 25-100] Acetaminophen Tab [Tylenol] 650 mg PO Q4H PRN 12/02/22 12/02/22 History Lisinopril-Hctz 20-12.5 mg 1 tab PO DAILY 12/02/22 12/02/22 History [Zestoretic 20-12.5] Allergies Allergy/AdvReac Type Severity Reaction Status Date / Time No Known Allergies Allergy Verified 12/02/22 16:34 Physical Exam Vitals: Vital Signs Temp Pulse Pulse Resp BP BP Pulse Ox 12/03/22 06:49 98.2 F 81 127/78 97 12/03/22 02:35 98.6 F 66 17 131/71 96 12/02/22 22:50 97.8 F 51 L 18 133/78 93 L 12/02/22 20:59 68 16 110/60 98 12/02/22 20:25 67 20 107/67 98 12/02/22 20:00 68 20 110/67 98 12/02/22 19:55 89 16 178/104 98 12/02/22 19:00 86 16 98 12/02/22 18:00 86 16 170/100 98 12/02/22 17:00 60 16 125/60 98 12/02/22 16:20 86 16 130/60 98 12/02/22 16:16 98 F 86 16 130/60 98 12/02/22 14:20 68 16 140/85 99 12/02/22 14:18 98 F 82 16 140/85 100 Intake and Output 12/02/22 12/03/22 12/03/22 22:59 06:59 14:59 Other: Voiding Method Toilet # Voids 2 Weight 49.895 kg Results 12/03/22 04:21 12/03/22 04:21 Cardiac Enzymes 12/02/22 12/02/22 Range/Units 15:04 15:04 AST 24 (14-36) U/L Troponin I <0.012 (0.000-0.034) ng/mL Coagulation 12/02/22 Range/Units 15:04 PT 10.4 (9.0-12.0) sec APTT 22.8 (22.0-30.0) sec CBC 12/02/22 Range/Units 15:04 WBC 6.3 (3.8-10.6) k/uL RBC 4.06 (3.80-5.40) m/uL Hgb 13.9 (11.4-16.0) gm/dL Hct 40.7 (34.0-46.0) % Plt Count 243 (150-450) k/uL Comprehensive Metabolic Panel 12/02/22 Range/Units 15:04 Sodium 137 (137-145) mmol/L Potassium 4.4 (3.5-5.1) mmol/L Chloride 100 (98-107) mmol/L Carbon Dioxide 32 H (22-30) mmol/L BUN 34 H (7-17) mg/dL Creatinine 1.04 (0.52-1.04) mg/dL Glucose 107 H (74-99) mg/dL Calcium 9.2 (8.4-10.2) mg/dL AST 24 (14-36) U/L ALT 6 (4-34) U/L Alkaline Phosphatase 51 (38-126) U/L Total Protein 6.7 (6.3-8.2) g/dL Albumin 4.1 (3.5-5.0) g/dL Current Medications Generic Name Dose Route Start Last Admin Trade Name Freq PRN Reason Stop Dose Admin Acetaminophen 650 mg 12/02/22 22:45 Acetaminophen Tab 325 Mg Tab PO Q4H PRN Pain Aspirin 325 mg 12/03/22 09:00 Aspirin 325 Mg Tab PO DAILY DANE Aspirin 81 mg 12/03/22 21:00 Aspirin 81 Mg PO HS DANE Carbidopa/Levodopa 1.5 each 12/02/22 18:45 12/02/22 23:57 Carbidopa-Levodopa 25-100 Mg 1 Each Tab PO 1.5 each QID DANE Administration Lisinopril/HCTZ 1 each 12/03/22 09:00 Lisinopril-Hctz 20-12.5 Mg 1 Each Tab PO DAILY DANE Melatonin 5 mg 12/02/22 23:45 12/02/22 23:57 Melatonin 5 Mg Tablet PO 5 mg HS DANE Administration Intake and Output 12/02/22 12/03/22 12/03/22 22:59 06:59 14:59 Other: Voiding Method Toilet # Voids 2 Weight 49.895 kg 12/02/22 15:04 12/02/22 15:04
--- NOTE | 2022-12-03 18:49 | CA ---
Transthoracic Echo Report Name: Glenys Lentz Age: 82 Gender: F : 1940 Exam Date: 12/03/2022 12:51 Exam Location: [facility] Ht (in): 62 Wt (lb): 110 Ordering Physician: Conrado Waldron MD Attending/Referring Phys: Piped Buttonhole Machine Operator Emanuel Molina RDCS Procedure CPT: Indications: TIA vs Seizre Cardiac Hx: Technical Quality: Fair Contrast 1: Total Dose (mL): Contrast 2: Total Dose (mL): MEASUREMENTS (Male / Female) Normal Values 2D ECHO LV Diastolic Diameter PLAX 3.3 cm 4.2 - 5.9 / 3.9 - 5.3 cm LV Systolic Diameter PLAX 2.6 cm LV Fractional Shortening PLAX 22.9 % IVS Diastolic Thickness 1.1 cm 0.6 - 1.0 / 0.6 - 0.9 cm IVS Systolic Thickness 1.2 cm LVPW Diastolic Thickness 1.1 cm 0.6 - 1.0 / 0.6 - 0.9 cm LVPW Systolic Thickness 1.3 cm LV Relative Wall Thickness 0.7 RV Internal Dim ED PLAX 3.2 cm LVOT Diameter 1.9 cm Aortic Root Diameter 3.1 cm LA Systolic Diameter LX 1.8 cm 3.0 - 4.0 / 2.7 - 3.8 cm LA Ao Ratio 0.6 LV Diastolic Volume MOD BP 51.8 cm??? 67 - 155 / 56 - 104 cm??? LV Systolic Volume MOD BP 29.1 cm??? 22 - 58 / 19 - 49 cm??? LV Ejection Fraction MOD BP 43.9 % >= 55 % LV Stroke Volume MOD BP 22.7 cm??? LV Diastolic Volume MOD 4C 58.1 cm??? LV Systolic Volume MOD 4C 26.8 cm??? LV Ejection Fraction MOD 4C 53.8 % LV Stroke Volume MOD 4C 31.3 cm??? LV Diastolic Length 4C 6.9 cm LV Systolic Length 4C 6.1 cm LV Diastolic Volume MOD 2C 39.8 cm??? LV Systolic Volume MOD 2C 29.7 cm??? LV Ejection Fraction MOD 2C 25.2 % LV Stroke Volume MOD 2C 10.0 cm??? LV Diastolic Length 2C 5.9 cm LV Systolic Length 2C 5.7 cm Ascending Aorta Diameter 2.3 cm M-MODE Aortic Root Diameter MM 3.1 cm LA Systolic Diameter MM 2.4 cm LA Ao Ratio MM 0.8 MV E Point Septal Separation 1.0 cm AV Cusp Separation MM 1.3 cm DOPPLER AV Peak Velocity 96.3 cm/s AV Peak Gradient 3.7 mmHg AI Peak Velocity 435.7 cm/s AI Peak Gradient 75.9 mmHg AI Deceleration Lyman 209.7 cm/s??? AI Pressure Half Time 602.6 ms MV Peak Velocity 95.1 cm/s MV Peak Gradient 3.6 mmHg MV Mean Velocity 68.7 cm/s MV Mean Gradient 2.0 mmHg MV Velocity Time Integral 25.7 cm MV Deceleration Lyman 256.7 cm/s??? MR Peak Velocity 269.1 cm/s MR Peak Gradient 29.0 mmHg MR Mean Velocity 226.5 cm/s MR Mean Gradient 22.2 mmHg MR Velocity Time Integral 94.0 cm Mitral E Point Velocity 58.9 cm/s Mitral A Point Velocity 82.9 cm/s Mitral E to A Ratio 0.7 MV Deceleration Time 229.7 ms MV E' Velocity 4.4 cm/s Mitral E to MV E' Ratio 13.5 TR Peak Velocity 226.9 cm/s TR Peak Gradient 20.6 mmHg Right Ventricular Systolic Press 30.6 mmHg PV Peak Velocity 81.8 cm/s PV Peak Gradient 2.7 mmHg FINDINGS Left Ventricle Left ventricular ejection fraction is estimated at 50-55 %. Grade 1 diastolic dysfunction. Right Ventricle Normal right ventricular size and function. RVSP- 31 mm Hg. Right Atrium Mild right atrial dilatation. Left Atrium Normal left atrial size. Mitral Valve Mild thickening/calcification of the anterior mitral valve leaflet. Mild thickening/calcification of the posterior mitral valve leaflet. Mild mitral annular calcification. [id number] mitral regurgitation. Aortic Valve Trileaflet aortic valve. Diffuse thickening (sclerosis) of the aortic valve cusps without reduced excursion. Moderate aortic regurgitation. Tricuspid Valve Mild tricuspid regurgitation. Pulmonic Valve Mild pulmonic regurgitation. Pericardium Normal pericardium. No pericardial effusion. Aorta Mild aortic dilatation at the level of the sinuses of valsalva (root). CONCLUSIONS Normal LV size with mild to moderate aortic regurgitation and [id number] mitral regurgitation Mildly enlarged aortic root Previewed by: Dr. Anton Barrientos MD (Electronically Signed) Final Date: 03 December 2022 18:49
--- NOTE | 2022-12-03 19:09 | P.PN ---
Subjective Progress Note Date: 12/03/22 Patient was seen for a follow-up. Patient was in the bathroom. She was walking with a walker fairly stable coming to the bed. She is a slightly stooped posture. Telemetry monitoring showing sinus rhythm, with no other arrhythmia. Objective - Vital Signs Vital signs: Vital Signs Temp 98.1 F 12/03/22 16:55 Pulse 82 12/03/22 16:55 Resp 18 12/03/22 16:55 BP 108/67 12/03/22 16:55 Pulse Ox 95 12/03/22 16:55 FiO2 Intake & Output 12/02/22 12/03/22 12/03/22 18:59 06:59 18:59 Intake Total 476 Balance 476 Weight 49.895 kg 49.895 kg Intake: Oral 476 Other: Voiding Method Toilet Toilet # Voids 2 1 - Exam Patient examination is essentially unchanged. Mental status, speech and language functions are normal. Muscle strength normal except hip flexion. - Labs CBC & Chem 7: 12/03/22 04:21 12/03/22 04:21 Labs: Abnormal Lab Results - Last 24 Hours (Table) 12/03/22 12/03/22 Range/Units 04:21 04:21 RBC 3.70 L (4.10-5.20) X 10*6/uL MCV 102.2 H (80.0-97.0) fL MCH 34.3 H (27.0-32.0) pg MPV 9.4 L (9.5-12.2) fL Carbon Dioxide 28.4 H (20.0-27.5) mmol/L Anion Gap 8.60 L (10.00-18.00) mmol/L BUN 31.4 H (9.0-27.0) mg/dL BUN/Creatinine Ratio 44.86 H (12.00-20.00) Ratio ALT 5 L (8-44) U/L Total Protein 5.7 L (6.2-8.2) g/dL Cholesterol 244.00 H (0.00-200.00) mg/dL LDL Cholesterol, Calc 134.8 H (0.0-131.0) mg/dL HDL Cholesterol 89.00 H (40.00-60.00) mg/dL Assessment and Plan Assessment: * Episode of unresponsiveness with slump over to the right side, unclear etiology. Differential diagnosis includes possible TIA versus partial seizure versus vasovagal syncope versus arrhythmia. * Parkinson's disease, with presence of bilateral DBS (with recent end-of-life of DBS batteries, in the process of getting batteries replaced) * Hypertension * Hyperlipidemia * History of a seizure type spell in the past for which patient was on Keppra for a couple years then stopped. Plan: * Patient had a possible TIA, need further workup. * Patient cannot have MRI because of presence of bilateral DBS. * 2-D echo completed, results pending at this time. * Cardiology also has seen the patient, recommending Holter monitoring and if negative, may need loop recorder placement. * Carotid Doppler, revealed no hemodynamically significant stenosis in either ICA. Antegrade flow in both vertebral arteries. * Fasting a.m. lipid panel with cholesterol 244, LDL 134, HDL 89 and triglycerides 101. Patient has hyperlipidemia. She will be started on Lipitor 40 mg at bedtime. * Hemoglobin A1c 5.5 * Patient has macrocytosis, B12 713, folate 10.7, both normal. Patient denies alcoholism. 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 There were presence of some sharply contoured waves in the bitemporal region, which may be related to underlying breach rhythm, although may also suggest underlying cortical irritability. Clinical correlation and a follow-up prolonged EEG recommended. * I spoke to patient's son, who is also a physician. He mentioned that patient had a similar spell about 4 or 5 years ago when she was living in [place]. She was started on Keppra, empirically, without EEG performed at that time. She was continued on Keppra for 2 years. However since she moved to [place], she had undergone EEGs, which did not show any epileptiform activity, th erefore her neurologist discontinued Keppra about 2 years ago. This piece of information makes seizure her in the differential. I discussed with patient's son about empirically resuming Keppra versus waiting and performing prolonged EEG as outpatient. He preferred waiting, and patient will undergo prolonged EEG at her neurology office. If abnormal, then we will consider resuming Keppra at that point. We will therefore hold on starting Keppra at this time. * Patient and her son were informed of [place] state law of no driving unless seizure/syncope free for 6 months, climbing ladders, operating dangerous machinery or unsupervised swimming. * Continue aspirin. Does increased to 325 mg daily for now. * Continue Sinemet. Patient was receiving Sinemet 25/100, 1 tablet 4 times a day. As the DBS is not working due to batteries, her Parkinson's is getting worse. Family requested to increase the dose of Sinemet to 1.5 tablet 4 times a day. * Telemetry monitoring so far showing sinus rhythm with no other arrhythmia. * DVT prophylaxis: Heparin 5000 units subcu every 12 hours * Neurologically clear for discharge, if the echo report comes back normal.
[2022-12-03] MEDS ORDERED: ATORVASTATIN 40 MG TAB PO SCH (21:00)
[2022-12-03] MEDS ORDERED: ASPIRIN 81 MG PO SCH (21:00)
[2022-12-03] MEDS: MELATONIN 5 MG TABLET PO SCH (21:20)
[2022-12-03] MEDS: HEPARIN SODIUM,PORCINE/PF 5,000 UNIT/0.5 ML SYRINGE SQ SCH (21:21)
--- NOTE | 2022-12-04 00:57 | HP ---
HISTORY AND PHYSICAL HISTORY OF PRESENT ILLNESS: This 82-year-old white female came to the ER by ambulance for possible TIA. She collapsed while eating food at home, history of Parkinson disease, bilateral DBS placement in the past where batteries have , says her tremors have been much better for long time. She felt like she was having a normal day and ever since she felt things going foggy and she passed out. She has been hitting things, her caught her. States something was not right. everything turned white in her vision, slumped over on the right side. She almost froze, her was trying to get her tension, but she was unresponsive, her eyes are closed. No jerking or convulsion activity, limp on the right side. She she is going to fall from a bar stool. No loss of urination. EMS came and brought her to the hospital. Blood pressures, she says have been high at home 140/85. When she was in the hospital, they have been around 110 to 120s all day, pulse 80s, temperature 99. Normal CBC. BUN 34, creatinine 1.04. Hepatitis panel normal. Normal troponin. EKG sinus rhythm CT of the head negative, bilateral stimulator leads in the thalamus. No other acute findings. PAST MEDICAL HISTORY: Mentions CVA, TIA, hypertension. PAST SURGICAL HISTORY: Back surgery, hysterectomy, deep stimulator for Parkinson's. REVIEW OF SYSTEMS: A 14-point review of systems otherwise is negative except for poor sleeping, frequently waking to urinate. PAST FAMILY HISTORY: Father, multiple myeloma. Mother age 92. HOME MEDICINES: 1. Aspirin 81 daily. 2. Carbidopa levodopa 25/100 q.i.d. 3. Lisinopril hydrochlorothiazide 20/12.5 daily. ALLERGIES: Negative. PHYSICAL EXAMINATION: VITAL SIGNS: Temperature 98, pulse is 60s to 80s, respiratory rate 12 to 16, blood pressure 130 to 140 over 60s to 80s, oxygen 98 to 100. NEUROLOGIC: Appears to be normal in my opinion. She is giving appropriate answers. Labs reviewed. All CAT scans have been reviewed. ASSESSMENT: Episode of unresponsiveness, unclear etiology, possible vasovagal versus TIA versus seizure. Arrhythmia, history of Parkinson's disease, hypertension. She cannot have an MRI due to her bilateral DBS. She is going to get an echo with a bubble study and carotid Dopplers negative. Cholesterol A1c, B12, folate due to macrocytosis. Neuro checks. Watch for arrhythmias on the athletic monitor. Aspirin 325, they increased her Sinemet to one and a half tabs q.i.d. Telemetry monitoring, subcu heparin. Prognosis guarded. FOREST / MATTHEW: [id number] /
--- NOTE | 2022-12-04 02:12 | EEG ---
REVISED REPORT: ELECTROENCEPHALOGRAM REPORT PREAMBLE: This is an 82-year-old female with an episode of unresponsiveness. This study is performed to evaluate for any epileptiform activity. EEG FINDINGS: This is a 21-channel digital EEG recorded with video component, utilizing 10/20 international system with referential and bipolar montages. Background consists of well developed, well regulated moderate voltage activity in 8 to 9 hertz alpha, that is posterior dominant and reactive to eye opening and closing. Photic driving response was not clearly seen. Frequent dysrhythmic activity seen in the temporal region bilaterally, with some sharply contoured waves in these region. Different stages of sleep were not seen. No electrographic seizure was recorded. IMPRESSION: This is an abnormal EEG due to presence of intermittent dysrhythmic slowing in bilateral mid to posterior temporal region, and some sharply contoured waves in the same region as well. This is suggestive of focal cortical neuronal dysfunction with some underlying cortical irritability. Clinical correlation and a follow-up prolonged EEG recommended for further evaluation. MMODL / IJN: [id number] / ZO
[2022-12-04 03:25] VITALS: RESP 18
[2022-12-04 09:24] VITALS: BP 149/80; PULSE 78; TEMP 97.8
[2022-12-04] MEDS: LISINOPRIL-HCTZ 20-12.5 MG 1 EACH TAB PO SCH (10:15)
[2022-12-04] MEDS: ASPIRIN 325 MG TAB PO SCH (10:15)
[2022-12-04] MEDS: CARBIDOPA-LEVODOPA 25-100 MG 1 EACH TAB PO SCH (10:15)
[2022-12-04] MEDS: HEPARIN SODIUM,PORCINE/PF 5,000 UNIT/0.5 ML SYRINGE SQ SCH (10:15)
--- NOTE | 2022-12-04 12:06 | P.PN ---
Subjective Progress Note Date: 12/04/22 This is an 82-year-old with past medical history significant for Parkinson's disease with brain stimulator, hypertension. She has no previous cardiac history, does not follow with a computer aided design technician. She has recently moved to the [facility] and established with Dr. Munoz. We have been asked to see the patient for CVA. Patient gives history that she was sitting at the bar with her at home eating and all of a sudden everything went fuzzy and she leaned to the side. This lasted for about 2-3 minutes. She remembers sitting down at the counter right up to the time of this episode. She states she has had dizzy spells but this is not similar to her normal dizzy spell for which the last one occurred a couple weeks ago. Patient was noted to have a facial droop and right-sided paralysis of the arm for 5 minutes following this episode. The weakness and facial droop have completely resolved and not recurred. Regarding her brain stimulator, one battery is at end-of-life and the second one is at 25%. She is to have batteries replaced in about 2 weeks. Patient's son Maximilian Shepherd was contacted and updated. He was concerned that she may have had a "freeze episode" due to the stimulator not functioning but due to the fact that patient cannot recall what happened, this is less likely. Discussed need to rule out underlying atrial fibrillation as culprit. Son is in agreement and di scussed plan to have a Holter monitor for now with event monitor following brain stimulator battery replacements. Patient is also in agreement with this plan. Patient has been seen by neurology and increase aspirin to 325 mg daily, ordered echocardiogram with bubble study to rule out PFO, lab work, EEG. 12/04/2022 Patient was seen and examined. She is quite upset she was hoping to be discharged yesterday. She is overall feeling well otherwise. She is maintaining sinus mechanism on the monitor. Echocardiogram with Doppler study showed ejection fraction of 50-55% with mild to moderate MR, moderate AI, and mild TR. Objective - Vital Signs Vital signs: Vital Signs Temp 97.8 F 12/04/22 07:00 Pulse 78 12/04/22 07:00 Resp 18 12/04/22 07:00 BP 149/80 12/04/22 07:00 Pulse Ox 99 12/04/22 09:23 FiO2 Intake & Output 12/03/22 12/04/22 12/04/22 18:59 06:59 18:59 Intake Total 476 Balance 476 Intake: Oral 476 Other: Voiding Method Toilet Toilet # Voids 1 2 - Exam HEENT: Head is atraumatic, normocephalic. Pupils equal, round. Sclerae is anicteric. NECK: Supple. No JVD. . LUNGS: Clear to auscultation. No wheezes or rhonchi. No intercostal retractions. HEART: Regular rate and rhythm. No murmur. ABDOMEN: Soft No tenderness. EXTREMITIES: No pedal edema. No calf tenderness. NEUROLOGICAL: Patient is awake, alert and oriented x3. No facial droop. No extremity weakness. - Labs CBC & Chem 7: 12/03/22 04:21 12/03/22 04:21 Assessment and Plan Assessment: TIA Parkinson's disease with brain stimulator with batteries at end of life Hypertension Plan: From cardiology perspective patient may be discharged home. The family will obtain a Holter monitor from our office. She'll follow-up in the office with Dr. Barrientos in about 3 weeks. Plan for possible loop monitor implantation if no abnormalities is seen on the Holter monitor. TRANSPORT DRIVER note has been reviewed, I agree with a documented findings and plan of care. Patient was seen and examined.
--- NOTE | 2022-12-04 20:22 | DS ---
DISCHARGE SUMMARY HOSPITAL COURSE: This 82-year-old white female came in with a syncopal episode at her kitchen counter when she was eating food, caught her. She just faded down she says, unclear why. She has never had it before. Neurology saw her, said she was cleared for discharge if her echo was good. Echo came back good. Cardiology cleared her. She probably had a vasovagal syncope. Her blood pressures she says has been real high at home in the mornings. Blood pressure has been totally fine here in the hospital. The whole time she has been here, no signs of any more syncope or seizures or anything like that. She refused some of the testing in the hospital. Cardiology ordered a cholesterol pill which we ordered, placed on new cholesterol pill atorvastatin 40 mg daily and she was stable from medical standpoint for discharge. Follow up with Dr. Izquierdo in [place]. DIET: As tolerated. CONDITION: Stable. PROGNOSIS: Guarded. MMODL / IJN: [id number] /
== END 2022-12-04 13:45 | disposition home or self-care (01) ==
LOC: EC 14:10 → 6NMEDSUR 16:30
PROVIDERS: ADMIT Family Medicine; ATTEND Family Medicine
DX: G45.9 Transient cerebral ischemic attack, unspecified (principal); G20 Parkinson's disease; T85.190A Other mechanical complication of implanted electronic neurostimulator of brain electrode (lead), initial encounter; I10 Essential (primary) hypertension; D75.89 Other specified diseases of blood and blood-forming organs; I08.0 Rheumatic disorders of both mitral and aortic valves; E78.5 Hyperlipidemia, unspecified; R94.01 Abnormal electroencephalogram [EEG]; Z79.82 Long term (current) use of aspirin; Z79.899 Other long term (current) drug therapy; Z86.73 Personal history of transient ischemic attack (TIA), and cerebral infarction without residual deficits; Z90.710 Acquired absence of both cervix and uterus; Z96.82 Presence of neurostimulator; Z98.890 Other specified postprocedural states; Z80.7 Family history of other malignant neoplasms of lymphoid, hematopoietic and related tissues
CPT/HCPCS: 96372 ×2; 99285; 36415; 94760; 95816; 93005; 93306; 97162; 85379; 80061; 80053 ×2; 84443; 82607; 82550; 82746; 84484; 85025 ×2; 85610; 85730; 83036; 71046; 93880; 70450; G0378 ×3; J1644 ×2